=== PATIENT | male | born 1995 | race Hispanic/Latino ===

== ENCOUNTER 2021-12-03 13:49 | Emergency (ER) | payer OTHER ==
[~2021-12-03] VITALS: Ht 172.7 cm; Wt 95.3 kg
[2021-12-03] MEDS ORDERED: MUCINEX DM ER1 EACH PO (14:56)
== END 2021-12-03 15:17 | disposition home or self-care (01) ==
LOC: FSED 14:01
DX: R05.9 Cough, unspecified (principal); Z87.09 Personal history of other diseases of the respiratory system
CPT/HCPCS: 71045; 80053; 85025; 93005; 99284